=== PATIENT | male | born 1995 | race Caucasian/White ===

== ENCOUNTER 2018-01-14 13:45 | Emergency (ER) | payer OTHER ==
[2018-01-14 14:08] VITALS: BP 124/80
[2018-01-14] MEDS ORDERED: ZOFRAN IV ONE (14:33)
[2018-01-14] MEDS ORDERED: KEPPRA 1,000 MG/NS 0.75% 100ML 1,000 MG/100 ML BAG IV ONE (14:33)
[2018-01-14 14:34] LABS: Hematocrit 45.9 % (35.5-45.6); Mean Corpuscular HGB Conc 35 % (32-34); Mean Corpuscular Hemoglobin 29 pg (28-32); Mean Corpuscular Volume 85 fl (84-94); Platelet Count 300 K/mm3 (140-440); Red Blood Count 5.43 M/mm3 (3.65-5.03)
--- NOTE | 2018-01-14 14:36 | Emergency Department Report ---
ED Seizure HPI - General Chief Complaint: Seizure Stated Complaint: SEIZURE Time Seen by Provider: 01/14/18 14:32 Source: EMS, fundraising coordinator Mode of arrival: Ambulatory Limitations: Language Barrier (green chainer used) - History of Present Illness Initial Comments: 22 yo male with a past medical history of seizures presents to the hospital status post seizure and now presents with headache and nausea and vomiting. Patient has been off of his unknown seizure medication to last 7 years. Last year was several months ago. This had a seizure prior to arrival initially presented postictal. Alert and oriented 3 at the time of my evaluation and complains of headache with nausea and vomiting. No fever or neck pain reported - Related Data Previous Rx's Medication Instructions Recorded Last Taken Type Ibuprofen [Motrin] 800 mg PO Q8HR PRN #30 tablet 01/14/18 Unknown Rx Ondansetron [Zofran Odt] 4 mg PO Q8HR PRN #20 tab.rapdis 01/14/18 Unknown Rx levETIRAcetam [Keppra TAB] 500 mg PO BID #60 tablet 01/14/18 Unknown Rx Allergies Allergy/AdvReac Type Severity Reaction Status Date / Time No Known Allergies Allergy Unverified 01/14/18 14:08 ED Review of Systems ROS: Stated complaint: SEIZURE Other details as noted in HPI Comment: All other systems reviewed and negative ED Past Medical Hx - Past Medical History Hx Seizures: Yes - Social History Smoking Status: Current Some Day Smoker Substance Use Type: None - Medications Home Medications: Home Medications Medication Instructions Recorded Confirmed Last Taken Type Ibuprofen [Motrin] 800 mg PO Q8HR PRN #30 tablet 01/14/18 Unknown Rx Ondansetron [Zofran Odt] 4 mg PO Q8HR PRN #20 tab.rapdis 01/14/18 Unknown Rx levETIRAcetam [Keppra TAB] 500 mg PO BID #60 tablet 01/14/18 Unknown Rx ED Physical Exam - General Limitations: Language Barrier - Other Other exam information: General: No limitations, patient is alert in no acute distress Head exam: Atraumatic, normocephalic Eyes exam: Normal appearance, pupils equal reactive to light, extraocular movements intact ENT: Moist mucous membrane, normal oropharynx Neck exam: Normal inspection, full range of motion, no meningismus nontender Respiratory exam: Clear to auscultation bilateral, no wheezes, rales, crackles Cardiovascular: Normal rate and rhythm, normal heart sounds Abdomen: Soft, nondistended, and nontender, with normal bowel sounds, no rebound, or guarding Extremity: Full range of motion normal inspection no deformity Back: Normal Inspection, full range of motion, no tenderness Neurologic: Alert, oriented x3, cranial nerves intact, no motor or sensory deficit Psychiatric: normal affect, normal mood Skin: Warm, dry, intact ED Course Vital Signs 01/14/18 13:59 Temperature 97.3 F L Pulse Rate 79 Respiratory 18 Rate Blood Pressure 124/80 O2 Sat by Pulse 97 Oximetry - Reevaluation(s) Reevaluation #1: 01/14/18 14:35 IV Zofran and Keppra ordered ED Medical Decision Making - Lab Data Result diagrams: 01/14/18 14:18 01/14/18 14:18 Lab Results 01/14/18 01/14/18 Range/Units 14:18 14:18 WBC 8.5 (4.5-11.0) K/mm3 RBC 5.43 H (3.65-5.03) M/mm3 Hgb 16.0 H (11.8-15.2) gm/dl Hct 45.9 H (35.5-45.6) % MCV 85 (84-94) fl MCH 29 (28-32) pg MCHC 35 H (32-34) % RDW 13.0 L (13.2-15.2) % Plt Count 300 (140-440) K/mm3 Sodium 138 (137-145) mmol/L Potassium 3.9 (3.6-5.0) mmol/L Chloride 96.7 L (98-107) mmol/L Carbon Dioxide 26 (22-30) mmol/L Anion Gap 19 mmol/L BUN 8 L (9-20) mg/dL Creatinine 0.6 L (0.8-1.5) mg/dL Estimated GFR > 60 ml/min BUN/Creatinine Ratio 13 % Glucose 111 H (75-100) mg/dL Calcium 9.7 (8.4-10.2) mg/dL Magnesium 1.90 (1.7-2.3) mg/dL - Radiology Data Radiology results: report reviewed CT HEAD WITHOUT CONTRAST: HISTORY: Seizure, headache, nausea and vomiting. TECHNIQUE: Sequential 2.5mm CT images. COMPARISON: none. FINDINGS: Cerebral Parenchyma: Within normal limits. Cerebellum: Within normal limits. Brainstem: Within normal limits. Ventricles: Normal. Sella: Normal. Extra-axial spaces: Normal. Basal Cisterns: Normal. Intracranial Hemorrhage: None. Midline Shift: None. Calvarium: Normal. Sinuses: Normal. Mastoid Air Cells: Normal. Visualized Orbits: Normal. IMPRESSION: Cranial CT scan within normal limits. - Medical Decision Making sz/carrillo ct neg labs neg med noncompliance received keppra, zofran, toradol improved sx d/c w/follow up - Differential Diagnosis sz, post sz carrillo, ICH, Intracranial mass Critical Care Time: No Critical care attestation.: If time is entered above; I have spent that time in minutes in the direct care of this critically ill patient, excluding procedure time. ED Disposition Clinical Impression: Seizure, Noncompliance with medication regimen Disposition: TO HOME OR SELFCARE Is pt being admited?: No Does the pt Need Aspirin: No Condition: Stable Instructions: Recurrent Seizures Adult (ED) Additional Instructions: Take the medication as prescribed. Follow up with your doctor. Return if symptoms worsen as indicated by your discharge instructions [place] la medicacin segn lo prescrito. Turner un seguimiento con daily mdico. Regrese si los sntomas empeoran segn lo indicado por nilesh instrucciones de melba Prescriptions: Ibuprofen [Motrin] 800 mg PO Q8HR PRN #30 tablet PRN Reason: Pain, Moderate (4-6) levETIRAcetam [Keppra TAB] 500 mg PO BID #60 tablet Ondansetron [Zofran Odt] 4 mg PO Q8HR PRN #20 tab.rapdis PRN Reason: Nausea And Vomiting Referrals: PRIMARY CARE, [Primary Care Provider] - 3-5 Days MYCHAL WALL MD [Staff Physician] - 3-5 Days (neurolgy ) BRAXTON WREN MD [Staff Physician] - 3-5 Days [facility] [Provider Group] - 3-5 Days Time of Disposition: 16:58
[2018-01-14] MEDS ORDERED: TORADOL IV ONE (14:51)
[2018-01-14] MEDS ORDERED: PEPCID IV ONE (14:51)
[2018-01-14 14:54] LABS: BUN/Creatinine Ratio 13; Blood Urea Nitrogen 8 mg/dL (9-20); Calcium 9.7 mg/dL (8.4-10.2); Hemolysis Index 11
--- NOTE | 2018-01-14 15:43 | Cat Scan Report ---
CT HEAD WITHOUT CONTRAST: HISTORY: Seizure, headache, nausea and vomiting. TECHNIQUE: Sequential 2.5mm CT images. COMPARISON: none. FINDINGS: Cerebral Parenchyma: Within normal limits. Cerebellum: Within normal limits. Brainstem: Within normal limits. Ventricles: Normal. Sella: Normal. Extra-axial spaces: Normal. Basal Cisterns: Normal. Intracranial Hemorrhage: None. Midline Shift: None. Calvarium: Normal. Sinuses: Normal. Mastoid Air Cells: Normal. Visualized Orbits: Normal. IMPRESSION: Cranial CT scan within normal limits.
== END 2018-01-14 17:34 | disposition home or self-care (01) ==
LOC: ED 13:45
DX: R56.9 Unspecified convulsions (principal); F17.200 Nicotine dependence, unspecified, uncomplicated; Z91.14 Patient's other noncompliance with medication regimen
CPT/HCPCS: 36415; 70450; 80048; 82962; 83735; 85027; 96365; 96366; 96375; 99285; J1885; J1953; J2405